=== PATIENT | male | born 1970 | race Caucasian/White ===

== ENCOUNTER 2017-04-23 15:03 | Emergency (ER) | payer MEDICAID ==
[~2017-04-23] VITALS: Ht 185.4 cm; Wt 80.0 kg
[2017-04-23 15:13] VITALS: BP 139/102
[2017-04-23] MEDS ORDERED: NALOXONE 0.4 MG/ML, 1ML ONE (15:25)
[2017-04-23] MEDS ORDERED: NALOXONE 0.4 MG/ML, 1ML IVPush PRN (15:30)
[2017-04-23] MEDS ORDERED: PLEASE ENTER ALLERGIES MC SCH ×2 (15:30)
[2017-04-23 15:32] LABS: BLOOD UREA NITROGEN 18 mg/dL (7-18)
== END 2017-04-23 16:27 | disposition left against medical advice (07) ==
LOC: ED 16:21
DX: T40.1X1A Poisoning by heroin, accidental (unintentional), initial encounter (principal); F10.129 Alcohol abuse with intoxication, unspecified; F31.9 Bipolar disorder, unspecified
CPT/HCPCS: 36415; 71010; 80048; 82040; 85025; 99285